=== PATIENT | female | born 1990 ===

== ENCOUNTER 2017-05-11 20:20 | Emergency (ER) | payer MEDICAID, OTHER ==
[2017-05-11 20:24] VITALS: BMI 28.2
[2017-05-11 20:38] VITALS: TEMP 97.7; O2SAT 100
[2017-05-11] MEDS ORDERED: Sodium Chloride 0.9% 1,000 ML IV STA (20:56)
--- NOTE | 2017-05-11 20:58 | ED PDOC ---
Arrival/HPI - General Chief Complaint: Palpitations Time Seen by Provider: 05/11/17 20:25 Historian: Patient - History of Present Illness Narrative History of Present Illness (Text): 05/11/17 20:58 A 26 year old female, whose past medical history includes asthma, gastritis, and cholecystectomy presents to the emergency department complaining of intermittent palpitations for the past 2 days. Patient reports she was in the emergency department in August for similar symptoms and began taking amphetamine 3 days ago for weight loss in order to lose 30 pounds. She reports loss of appetite and believed it was working, but it progressed into palpations the next day. Patient's last menstrual period was 2 weeks ago. Patient reports she' s been stressed due to school and notes having chest tightness, shortness of breath, nausea, headaches, and feels anxious, but denies smoking, taking control pills, any fever, chills, cough, abdominal pain, vomiting, diarrhea, edema, dizziness, and vision change. PMD: Dr. Flores Time/Duration: Other (2 days) Symptom Onset: Sudden Symptom Course: Unchanged, Intermittent Activities at Onset: Light Context: Home Past Medical History - Provider Review Nursing Documentation Reviewed: Yes - Infectious Disease Hx of Infectious Diseases: None - Tetanus Immunization Tetanus Immunization: Unknown - Past Medical History Past Medical History: No Previous - Cardiac Hx Cardiac Disorders: Yes Other/Comment: Palpitations - Pulmonary Hx Respiratory Disorders: Yes Hx Asthma: Yes - Neurological Hx Neurological Disorder: No - HEENT Hx HEENT Disorder: No - Renal Hx Renal Disorder: No - Endocrine/Metabolic Hx Endocrine Disorders: No - Hematological/Oncological Hx Blood Disorders: No Hx Blood Transfusions: No Hx Blood Transfusion Reaction: No - Integumentary Hx Dermatological Disorder: No - Musculoskeletal/Rheumatological Hx Musculoskeletal Disorders: No Hx Falls: No - Gastrointestinal Hx Gastrointestinal Disorders: Yes Hx Gall Bladder Disease: Yes Hx Gastritis: Yes Hx Gastroesophageal Reflux: Yes Other/Comment: gastric erosion, epigastric pain, cholelithiasis - Genitourinary/Gynecological Hx Genitourinary Disorders: No - Psychiatric Hx Emotional Abuse: No Hx Physical Abuse: No Hx Substance Use: No - Surgical History Hx Section: Yes (X1) Hx Cholecystectomy: Yes - Anesthesia Hx Anesthesia: Yes Hx Anesthesia Reactions: No Hx Malignant Hyperthermia: No - Suicidal Assessment Feels Threatened In Home Enviroment: No Family/Social History - Physician Review Nursing Documentation Reviewed: Yes Family/Social History: No Known Family HX Smoking Status: Never Smoked Hx Alcohol Use: No Hx Substance Use: No Hx Substance Use Treatment: No Allergies/Home Meds Allergies/Adverse Reactions: Allergies Iodinated Contrast- Oral and IV Dye Allergy (Verified 08/23/16 12:33) ANAPHYLAXIS shellfish derived Allergy (Verified 08/23/16 12:33) ANAPHYLAXIS Home Medications: Home Meds Medication Instructions Recorded Confirmed No Known Home Med 05/11/17 05/11/17 Review of Systems - Physician Review All systems were reviewed & negative as marked: Yes - Review of Systems Constitutional: absent: Fevers, Other (Chills) Eyes: absent: Vision Changes Respiratory: SOB. absent: Cough Cardiovascular: Chest Pain (chest tight), Palpitations Gastrointestinal: Nausea, Appetite Changes. absent: Abdominal Pain, Diarrhea, Vomiting Musculoskeletal: absent: Other (Edema) Neurological: Headache. absent: Dizziness Psychiatric: Anxiety (feels stressed due to school) Physical Exam Vital Signs Reviewed: Yes Vital Signs Temp Pulse Resp BP Pulse Ox 05/11/17 20:31 97.7 F 101 H 16 116/79 100 Temperature: Afebrile Blood Pressure: Normal Pulse: Tachycardic Respiratory Rate: Normal Appearance: Positive for: Well-Appearing, Non-Toxic, Comfortable Pain Distress: None Mental Status: Positive for: Alert and Oriented X 3 - Systems Exam Head: Present: Atraumatic, Normocephalic Pupils: Present: PERRL Conjunctiva: Present: Normal Mouth: Present: Moist Mucous Membranes Pharnyx: Present: Normal. No: ERYTHEMA, EXUDATE Neck: Present: Normal Range of Motion Respiratory/Chest: Present: Clear to Auscultation, Good Air Exchange. No: Respiratory Distress, Accessory Muscle Use Cardiovascular: Present: Normal S1, S2, Tachycardic. No: Murmurs, Irregular Rhythm Abdomen: Present: Normal Bowel Sounds. No: Tenderness, Distention, Peritoneal Signs Back: Present: Normal Inspection Upper Extremity: Present: Normal Inspection. No: Cyanosis, Edema Lower Extremity: Present: Normal Inspection. No: Edema Neurological: Present: GCS=15, CN II-XII Intact, Speech Normal Skin: Present: Warm, Dry, Normal Color. No: Rashes Psychiatric: Present: Alert, Oriented x 3, Normal Insight, Normal Concentration Medical Decision Making ED Course and Treatment: 05/11/17 20:58 Impression: 26 year old female presents complaining of palpitations for the past 2 days after taking amphetamine for weight loss. Plan: -- EKG -- Labs -- Chest Two View X-ray -- Pepcid -- IV Fluid -- Xanax -- Zofran Inj -- POC Urine Preg Test -- Reassess and disposition Prior Visits: Notes and results from previous visits were reviewed. Patient was last seen in the emergency department on 08/23/16 complaining of intermittent palpitations for 3 months. Patient was discharged. Progress Notes: EKG shows Sinus Tachycardic at 101 BPM with normal intervals, normal axis, and no ST/T changes. Interpreted by me. 05/11/17 22:38 Patient with noted history. EKG with no concerning changes. Labs with normal CE and d-dimer and otherwise unremarkable. Stress test was normal earlier this year. CXR unremarkable. Patient feeling better after meds. Doubt cardiopulmonary etiology - ok for d/c. - Lab Interpretations Lab Results: 05/11/17 20:50 05/11/17 20:50 Lab Results 05/11/17 20:50: Sodium 141, Potassium 4.4, Chloride 106, Carbon Dioxide 26, Anion Gap 14, BUN 20, Creatinine 1.0, Est GFR ( Amer) > 60, Est GFR (Non- Af Amer) > 60, Random Glucose 119 H, Calcium 9.9, Magnesium 1.8, Total Bilirubin 0.7, AST 21, ALT 30, Alkaline Phosphatase 70, Lactate Dehydrogenase 371, Total Creatine Kinase 67, Troponin I 0.01, NT-Pro-B Natriuret Pep 77.9, Total Protein 7.7, Albumin 4.3, Globulin 3.4, Albumin/Globulin Ratio 1.3, Lipase 163 05/11/17 20:50: PT 14.6 H, INR 1.33 H, APTT 33.5, D-Dimer, Quantitative < 200 05/11/17 20:50: WBC 11.6 H D, RBC 4.25, Hgb 13.3, Hct 39.5, MCV 92.9, MCH 31.3, MCHC 33.7, RDW 13.0, Plt Count 259, MPV 11.0, Gran % 62.7, Lymph % (Auto) 24.3, [place] % (Auto) 10.0 H, Eos % (Auto) 2.4, Baso % (Auto) 0.6, Gran # 7.23 H, Lymph # 2.8, [place] # 1.2 H, Eos # 0.3, Baso # 0.07 I have reviewed the lab results: Yes - RAD Interpretation Radiology Orders: 05/11/17 20:32 CHEST TWO VIEWS (PA/LAT) [RAD] Stat - EKG Interpretation Interpreted by ED Physician: Yes Type: 12 lead EKG - Medication Orders Current Medication Orders: Discontinued Medications Alprazolam (Xanax) 0.25 mg PO STAT STA PRN Reason: Protocol Stop: 05/11/17 20:57 Last Admin: 05/11/17 21:12 Dose: 0.25 mg Famotidine (Pepcid) 20 mg IVP STAT STA Stop: 05/11/17 20:57 Last Admin: 05/11/17 21:12 Dose: 20 mg IVP Administration Document 05/11/17 21:12 RD (Rec: 05/11/17 21:13 RD [id number]) Charges for Administration # of IVP Administrations 1 Sodium Chloride (Sodium Chloride 0.9%) 1,000 mls @ 999 mls/hr IV .Q1H1M STA Stop: 05/11/17 21:56 Last Admin: 05/11/17 21:13 Dose: 999 mls/hr eMAR Start Stop Document 05/11/17 21:13 RD (Rec: 05/11/17 21:13 RD [id number]) Intravenous Solution Start Date 05/11/17 Start Time 21:13 End Date 05/11/17 End time 22:13 Total Infusion Time 60 Ondansetron HCl (Zofran Inj) 4 mg IVP STAT STA Stop: 05/11/17 20:57 Last Admin: 05/11/17 21:13 Dose: 4 mg IVP Administration Document 05/11/17 21:13 RD (Rec: 05/11/17 21:13 RD [id number]) Charges for Administration # of IVP Administrations 1 - Scribe Statement The provider has reviewed the documentation as recorded by the Sanjiv Jarvis Provider Scribe Attestation: All medical record entries made by the Scribe were at my direction and personally dictated by me. I have reviewed the chart and agree that the record accurately reflects my personal performance of the history, physical exam, medical decision making, and the department course for this patient. I have also personally directed, reviewed, and agree with the discharge instructions and disposition. Disposition/Present on Arrival - Present on Arrival Any Indicators Present on Arrival: No History of DVT/PE: No History of Uncontrolled Diabetes: No Urinary Catheter: No History of Decub. Ulcer: No History Surgical Site Infection Following: None - Disposition Have Diagnosis and Disposition been Completed?: Yes Diagnosis: Palpitations Disposition: HOSPITALIZED Disposition Time: 22:30 Patient Plan: Discharge Condition: GOOD Discharge Instructions (ExitCare): Palpitations (ED), Anxiety (ED) Additional Instructions: Avoid your amphetamine, weight loss medications, and follow up with Dr. Flores. Return to the emergency department if any new concerning symptoms. Forms: [facility] ([place]), WORK NOTE
[2017-05-11 21:10] LABS: BASO # 0.07 K/mm3 (0.0-2.0); BASO % 0.6 % (0.0-3.0); EOS # 0.3 (0.0-0.7); EOS % 2.4 % (1.5-5.0); GRAN # 7.23 (1.4-6.5); GRAN % 62.7 % (50.0-68.0); HEMATOCRIT 39.5 % (36.0-48.0); LYMPH # 2.8 (1.2-3.4); LYMPH % 24.3 % (22.0-35.0); MEAN CELL VOLUME 92.9 fl (80.0-105.0); MEAN CORPUSCULAR HEMOGLOBIN 31.3 pg (25.0-35.0); MEAN CORPUSCULAR HGB CONC 33.7 g/dl (31.0-37.0); MONO # 1.2 (0.1-0.6); WHITE BLOOD COUNT 11.6 10^3/ul (4.5-11.0)
[2017-05-11 21:40] LABS: TROPONIN I 0.01 ng/mL
[2017-05-11 21:49] LABS: ALB/GLOB RATIO 1.3 (1.1-1.8); ALKALINE PHOSPHATASE 70 U/L (38-126); ALT/SGPT 30 U/L (7-56); AST/SGOT 21 U/L (14-36); BILIRUBIN,TOTAL 0.7 mg/dL (0.2-1.3); BLOOD UREA NITROGEN 20 mg/dL (7-21); CALCIUM 9.9 mg/dL (8.4-10.5); CARBON DIOXIDE 26 mmol/L (21-33); CHLORIDE 106 mmol/L (98-107); GFR AFRICAN-AMERICAN > 60; GLUCOSE,RANDOM 119 mg/dL (70-110); LIPASE 163 U/L (23-300); MAGNESIUM 1.8 mg/dL (1.7-2.2); POTASSIUM 4.4 mmol/L (3.6-5.0); SODIUM 141 mmol/L (132-148); TOTAL PROTEIN 7.7 g/dL (5.8-8.3)
[2017-05-11 21:51] LABS: D DIMER < 200 ng/mL (0-243); INR 1.33 (0.93-1.08); PARTIAL THROMBOPLASTIN TIME 33.5 Seconds (25.1-36.5)
[2017-05-11 22:30] VITALS: BP 113/72; PULSE 92; RESP 18
--- NOTE | 2017-05-12 09:53 | RAD ---
HISTORY: palpitations COMPARISON: 08/23/2016 TECHNIQUE: Chest PA and lateral FINDINGS: LUNGS: No active pulmonary disease. PLEURA: No significant pleural effusion identified. No pneumothorax apparent. CARDIOVASCULAR: Normal. OSSEOUS STRUCTURES: Save bowel direct go view to the cuboid these if in the via ligament related to the the but VISUALIZED UPPER ABDOMEN: Normal. OTHER FINDINGS: None. IMPRESSION: No active disease. Concordant results with the preliminary interpretation rendered by the emergency department physician procedure.
--- NOTE | 2017-05-13 09:33 | CARD ---
APPROVED REPORT EKG Measurement Heart [id number] CT [id number] <Conclusion> Sinus tachycardia Otherwise normal ECG
== END 2017-05-11 22:45 | disposition home or self-care (01) ==
LOC: ED 20:20
DX: R00.2 Palpitations (principal)
CPT/HCPCS: 71020; 80053; 82550; 83615; 83690; 83735; 83880; 84484; 85025; 85378; 85610; 85730; 93005; 96361; 96374; 96375; 99284; J2405; J7040

== ENCOUNTER 2018-07-30 02:10 | Emergency (ER) | payer SELFPAY ==
[2018-07-30 02:10] VITALS: BMI 28.2
[2018-07-30] MEDS ORDERED: Sodium Chloride 0.9% 1,000 ML IV STA (02:24)
--- NOTE | 2018-07-30 02:25 | ED PDOC ---
Arrival/HPI - General Chief Complaint: Abdominal Pain Time Seen by Provider: 07/30/18 02:19 Historian: Patient - History of Present Illness Narrative History of Present Illness (Text): 07/30/18 02:22 Silvia Snowden is a 27 year old female, whose past medical history includes gastritis, cholecystectomy, and asthma, who presents to the Emergency department complaining of abdominal pain. Patient states she woke up tonight with sharp epigastric pain and nausea. Patient denies any fever, chills, chest pain, shortness of breath, diarrhea, urinary symptoms, back pain, neck pain, headache, dizziness, or any other complaints. Symptom Onset: Gradual Symptom Course: Unchanged Activities at Onset: Light Context: Home Past Medical History - Provider Review Nursing Documentation Reviewed: Yes - Infectious Disease Hx of Infectious Diseases: None - Tetanus Immunization Tetanus Immunization: Unknown - Reproductive Currently : No - Past Medical History Past Medical History: No Previous - Cardiac Hx Cardiac Disorders: Yes Other/Comment: Palpitations - Pulmonary Hx Respiratory Disorders: Yes Hx Asthma: Yes - Neurological Hx Neurological Disorder: No - HEENT Hx HEENT Disorder: No - Renal Hx Renal Disorder: No - Endocrine/Metabolic Hx Endocrine Disorders: No - Hematological/Oncological Hx Blood Disorders: No Hx Blood Transfusions: No Hx Blood Transfusion Reaction: No - Integumentary Hx Dermatological Disorder: No - Musculoskeletal/Rheumatological Hx Musculoskeletal Disorders: No Hx Falls: No - Gastrointestinal Hx Gastrointestinal Disorders: Yes Hx Gall Bladder Disease: Yes Hx Gastritis: Yes Hx Gastroesophageal Reflux: Yes Other/Comment: gastric erosion, epigastric pain, cholelithiasis - Genitourinary/Gynecological Hx Genitourinary Disorders: No - Psychiatric Hx Emotional Abuse: No Hx Physical Abuse: No Hx Substance Use: No - Surgical History Hx Section: Yes (X1) Hx Cholecystectomy: Yes - Anesthesia Hx Anesthesia: Yes Hx Anesthesia Reactions: No Hx Malignant Hyperthermia: No - Suicidal Assessment Feels Threatened In Home Enviroment: No Family/Social History - Physician Review Nursing Documentation Reviewed: Yes Family/Social History: Unknown Family HX Smoking Status: Never Smoked Hx Alcohol Use: No Hx Substance Use: No Hx Substance Use Treatment: No Allergies/Home Meds Allergies/Adverse Reactions: Allergies Iodinated Contrast- Oral and IV Dye Allergy (Verified 07/30/18 02:17) ANAPHYLAXIS shellfish derived Allergy (Verified 07/30/18 02:17) ANAPHYLAXIS Review of Systems - Physician Review All systems were reviewed & negative as marked: Yes - Review of Systems Constitutional: Normal. absent: Fevers Eyes: Normal ENT: Normal Respiratory: Normal. absent: SOB, Cough Cardiovascular: Normal. absent: Chest Pain Gastrointestinal: Abdominal Pain, Nausea. absent: Vomiting Genitourinary Female: Normal. absent: Dysuria, Frequency, Hematuria, Urine Output Changes Musculoskeletal: Normal. absent: Back Pain, Neck Pain Skin: Normal. absent: Rash Neurological: Normal. absent: Headache, Dizziness Endocrine: Normal Hemo/Lymphatic: Normal Psychiatric: Normal Physical Exam Vital Signs Reviewed: Yes Temperature: Afebrile Blood Pressure: Normal Pulse: Regular Respiratory Rate: Normal Appearance: Positive for: Well-Appearing, Non-Toxic, Comfortable Pain Distress: None Mental Status: Positive for: Alert and Oriented X 3 - Systems Exam Head: Present: Atraumatic, Normocephalic Pupils: Present: PERRL Extroacular Muscles: Present: EOMI Conjunctiva: Present: Normal Mouth: Present: Moist Mucous Membranes Neck: Present: Normal Range of Motion Respiratory/Chest: Present: Clear to Auscultation, Good Air Exchange. No: Respiratory Distress, Accessory Muscle Use Cardiovascular: Present: Regular Rate and Rhythm, Normal S1, S2. No: Murmurs Abdomen: Present: Tenderness (Mild epigastric tenderness). No: Distention, Peritoneal Signs Back: Present: Normal Inspection Upper Extremity: Present: Normal Inspection. No: Cyanosis, Edema Lower Extremity: Present: Normal Inspection. No: Edema Neurological: Present: GCS=15, CN II-XII Intact, Speech Normal Skin: Present: Warm, Dry, Normal Color. No: Rashes Psychiatric: Present: Alert, Oriented x 3, Normal Insight, Normal Concentration Medical Decision Making ED Course and Treatment: 07/30/18 02:22 Impression: 27 year old female complaining of epigastric abdominal pain and nausea. Plan: -- Labs, lipase -- IV fluids -- Zofran -- Pepcid -- Toradol -- Reassess and disposition Prior Visits: Notes and results from previous visits were reviewed. Progress Notes: - Scribe Statement The provider has reviewed the documentation as recorded by the Sanjiv Barr Provider Scribe Attestation: All medical record entries made by the Scribe were at my direction and personally dictated by me. I have reviewed the chart and agree that the record accurately reflects my personal performance of the history, physical exam, medical decision making, and the department course for this patient. I have also personally directed, reviewed, and agree with the discharge instructions and disposition. Disposition/Present on Arrival - Present on Arrival Any Indicators Present on Arrival: No History of DVT/PE: No History of Uncontrolled Diabetes: No Urinary Catheter: No History of Decub. Ulcer: No History Surgical Site Infection Following: None - Disposition Have Diagnosis and Disposition been Completed?: Yes Diagnosis: Gastritis Disposition: HOME/ ROUTINE Disposition Time: 04:36 Patient Plan: Discharge Condition: GOOD Discharge Instructions (ExitCare): Gastritis (DC) Additional Instructions: take meds as prescribed/follow up [facility] this week Prescriptions: Phenobarb/Hyoscy/Atropine/Scop [ Tablet] 16.2 mg PO Q6 PRN #12 tablet PRN Reason: Dyspepsia Pantoprazole [Protonix] 40 mg PO DAILY #14 ect Referrals: [facility] [Outside] - Follow up with primary [facility] [Outside] - Follow up with primary Joy Ceron MD [Medical Doctor] - Follow up with primary Forms: [employer] ([place])
[2018-07-30 02:31] VITALS: RESP 18; O2SAT 100
[2018-07-30] MEDS ORDERED: Morphine 2 mg/ml ISec IVP STA ×2 (02:42→03:22)
[2018-07-30 02:45] LABS: HEMOGLOBIN 12.3 g/dL (12.0-16.0); MEAN CELL VOLUME 92.1 fl (80.0-105.0); MEAN CORPUSCULAR HEMOGLOBIN 30.4 pg (25.0-35.0); MEAN CORPUSCULAR HGB CONC 33.1 g/dl (31.0-37.0); RBC 4.04 10^6/uL (3.5-6.1); RED CELL DISTRIBUTION WIDTH 12.9 % (11.5-14.5); WHITE BLOOD COUNT 9.7 10^3/uL (4.5-11.0)
[2018-07-30] MEDS ORDERED: Morphine 2 mg/ml ISec ONE (02:51)
[2018-07-30 03:04] LABS: ALB/GLOB RATIO 1.2 (1.1-1.8); ALBUMIN 4.2 g/dL (3.0-4.8); ALT/SGPT 10 U/L (7-56); AST/SGOT 25 U/L (14-36); BLOOD UREA NITROGEN 14 mg/dL (7-21); CALCIUM 8.7 mg/dL (8.4-10.5); GFR NON-AFRICAN AMERICAN > 60; LIPASE 81 U/L (23-300)
[2018-07-30 05:11] VITALS: BP 108/72; PULSE 77; TEMP 98
== END 2018-07-30 04:46 | disposition home or self-care (01) ==
LOC: ED 02:10
DX: K29.70 Gastritis, unspecified, without bleeding (principal)
CPT/HCPCS: 80053; 81025; 83690; 85027; 96374; 96375; 96376; 99283; J1885; J2270; J2405; J7030

== ENCOUNTER 2018-09-14 21:17 | Emergency (ER) | payer MEDICAID ==
[2018-09-14 21:49] VITALS: BMI 32.3
[2018-09-14 21:53] VITALS: RESP 16
--- NOTE | 2018-09-14 22:48 | ED PDOC ---
Arrival/HPI <ZainabApollo - Last Filed: 09/18/18 05:56> - General Historian: Patient - History of Present Illness Narrative History of Present Illness (Text): 27 y/o female with no significant PMH presents to the ED c/o left foot pain s/p injury this afternoon. Pt tripped walking down the stairs today, rolling her left ankle, causing dorsal foot pain. Denies head strike or LOC. Pt works at [employer] and received an XR there, diagnosed with a fracture, put in an CONI wrap and give crutches for ambulation. Pt presents here for splinting and further management. Has not taken any medication for pain. Also c/o hematuria for the last 2 days. Denies open wounds, numbness, weakness, paresthesias, or any other associated symptoms. <Loren Cannon - Last Filed: 09/19/18 12:35> - General Chief Complaint: Lower Extremity Problem/Injury Time Seen by Provider: 09/14/18 21:34 Past Medical History - Provider Review Nursing Documentation Reviewed: Yes - Infectious Disease Hx of Infectious Diseases: None - Tetanus Immunization Tetanus Immunization: Unknown - Past Medical History Past Medical History: No Previous - Cardiac Hx Cardiac Disorders: Yes Other/Comment: Palpitations - Pulmonary Hx Respiratory Disorders: Yes Hx Asthma: Yes - Neurological Hx Neurological Disorder: No - HEENT Hx HEENT Disorder: No - Renal Hx Renal Disorder: No - Endocrine/Metabolic Hx Endocrine Disorders: No - Hematological/Oncological Hx Blood Disorders: No Hx Blood Transfusions: No Hx Blood Transfusion Reaction: No - Integumentary Hx Dermatological Disorder: No - Musculoskeletal/Rheumatological Hx Musculoskeletal Disorders: No Hx Falls: No - Gastrointestinal Hx Gastrointestinal Disorders: Yes Hx Gall Bladder Disease: Yes Hx Gastritis: Yes Hx Gastroesophageal Reflux: Yes Other/Comment: gastric erosion, epigastric pain, cholelithiasis - Genitourinary/Gynecological Hx Genitourinary Disorders: No - Psychiatric Hx Emotional Abuse: No Hx Physical Abuse: No Hx Substance Use: No - Surgical History Hx Section: Yes (X1) Hx Cholecystectomy: Yes - Anesthesia Hx Anesthesia: Yes Hx Anesthesia Reactions: No Hx Malignant Hyperthermia: No - Suicidal Assessment Feels Threatened In Home Enviroment: No <Loren Cannon - Last Filed: 09/19/18 12:35> Family/Social History Family/Social History: Unknown Family HX <Apollo Lamb - Last Filed: 09/18/18 05:56> - Physician Review Nursing Documentation Reviewed: Yes Family/Social History: No Known Family HX Smoking Status: Never Smoked Hx Alcohol Use: No Hx Substance Use: No Hx Substance Use Treatment: No <Loren Cannon - Last Filed: 09/19/18 12:35> Allergies/Home Meds <Apollo Lamb - Last Filed: 09/18/18 05:56> <Loren Cannon - Last Filed: 09/19/18 12:35> Allergies/Adverse Reactions: Allergies Iodinated Contrast- Oral and IV Dye Allergy (Verified 07/30/18 02:17) ANAPHYLAXIS shellfish derived Allergy (Verified 07/30/18 02:17) ANAPHYLAXIS Review of Systems - Review of Systems Constitutional: Normal. absent: Fevers Eyes: Normal. absent: Vision Changes Respiratory: Normal. absent: SOB, Cough Cardiovascular: Normal. absent: Chest Pain, Syncope Gastrointestinal: Normal. absent: Abdominal Pain, Nausea, Vomiting Genitourinary Female: Dysuria, Hematuria. absent: Urine Output Changes, Vaginal Bleeding, Vaginal Discharge Musculoskeletal: Other (left foot pain) Skin: Normal. absent: Rash, Laceration Neurological: Normal. absent: Headache, Dizziness <Loren Cannon - Last Filed: 09/19/18 12:35> Physical Exam Vital Signs Temp Pulse Resp BP Pulse Ox 09/14/18 21:49 97.7 F 87 16 112/64 99 <Apollo Lamb - Last Filed: 09/18/18 05:56> Vital Signs Reviewed: Yes Vital Signs Temp Pulse Resp BP Pulse Ox 09/14/18 21:49 97.7 F 87 16 112/64 99 Temperature: Afebrile Blood Pressure: Normal Pulse: Regular Respiratory Rate: Normal Appearance: Positive for: Well-Appearing, Non-Toxic, Comfortable Pain Distress: None Mental Status: Positive for: Alert and Oriented X 3 - Systems Exam Head: Present: Atraumatic, Normocephalic Pupils: Present: PERRL Extroacular Muscles: Present: EOMI Conjunctiva: Present: Normal Mouth: Present: Moist Mucous Membranes Neck: Present: Normal Range of Motion Respiratory/Chest: Present: Clear to Auscultation, Good Air Exchange. No: Respiratory Distress, Accessory Muscle Use Cardiovascular: Present: Regular Rate and Rhythm, Normal S1, S2, Peripheal Pulses Present Back: Present: Normal Inspection. No: CVA Tenderness Upper Extremity: Present: Normal Inspection, Normal ROM, NORMAL PULSES, Neurovascularly Intact, Capillary Refill < 2s. No: Cyanosis, Edema, Temperature Abnormalties Lower Extremity: Present: Normal Inspection, NORMAL PULSES, Normal ROM, Tenderness (dorsal proximal left foot), Swelling (dorsal proximal left foot), Neurovascularly Intact, Capillary Refill < 2 s. No: Deformity, Temperature Abnormalties Neurological: Present: GCS=15, CN II-XII Intact, Speech Normal, Motor Func Grossly Intact, Normal Sensory Function Skin: Present: Warm, Dry, Normal Color. No: Rashes Psychiatric: Present: Alert, Oriented x 3, Normal Insight, Normal Concentration, Normal Affect, Normal Mood <Loren Cannon - Last Filed: 09/19/18 12:35> Medical Decision Making - Lab Interpretations Lab Results: Urine Color Light red (YELLOW) 09/14/18 22:47 Urine Appearance Slight-cloudy (CLEAR) 09/14/18 22:47 Urine pH 5.5 (4.7-8.0) 09/14/18 22:47 Ur Specific [place] >= 1.030 (1.005-1.035) 09/14/18 22:47 Urine Protein Negative mg/dL (<30 mg/dL) 09/14/18 22:47 Urine Glucose (UA) Negative mg/dL (NEGATIVE) 09/14/18 22:47 Urine Ketones 15 mg/dL (NEGATIVE) H 09/14/18 22:47 Urine Blood Trace-intact (NEGATIVE) H 09/14/18 22:47 Urine Nitrate Positive (NEGATIVE) H 09/14/18 22:47 Urine Bilirubin Negative (NEGATIVE) 09/14/18 22:47 Urine Urobilinogen 0.2 E.U./dL (<1 E.U./dL) 09/14/18 22:47 Ur Leukocyte Esterase Trace Jarrod/uL (NEGATIVE) H 09/14/18 22:47 Urine RBC 1 - 3 /hpf (0-2) H 09/14/18 22:47 Urine WBC 2 - 5 /hpf (0-6) 09/14/18 22:47 Ur Epithelial Cells 3 - 4 /hpf (0-5) 09/14/18 22:47 Urine Bacteria Small /hpf (NONE) 09/14/18 22:47 - RAD Interpretation Radiology Orders: 09/14/18 21:51 ANKLE LEFT 3 VIEWS ROUTINE [RAD] Stat FOOT LEFT 3 VIEWS ROUTINE [RAD] Stat - Medication Orders Current Medication Orders: Discontinued Medications Acetaminophen (Tylenol 325mg Tab) 650 mg PO STAT STA Stop: 09/14/18 22:49 Last Admin: 09/14/18 22:53 Dose: 650 mg MAR Pain/Vitals Document 09/14/18 22:53 (Rec: 09/14/18 22:53 [id number] Pain Reassessment Is This A Pain ReAssessment? No Presence of Pain Presence of Pain Yes Pain Scale Used Protocol: PSCALES Pain Scale Used Numeric Location Left, Right or Bilateral Left Pain Location Body Site Ankle Intensity 9 Ketorolac Tromethamine (Toradol) 60 mg IM STAT STA Stop: 09/14/18 21:52 <Apollo Lamb - Last Filed: 09/18/18 05:56> ED Course and Treatment: Initial Plan: * Left foot XR * Left ankle XR * UA * POC UA significant for UTI, will treat with keflex Xrays significant for dorsal navicular avulsion fracture Spoke with podiatry resident, who recommends posterior short leg splint with crutches for ambulation. Pt to followup with podiatry clinic on Monday. Pt placed in left posterior short leg splint by me. Neurovascular exam remains unchanged after splint. Pt tolerated well without complication. Diagnostic testing results and plan of care discussed with patient. Strict instructions given regarding prescription use, importance of followup, and signs/symptoms to return to ER including worsening pain, numbness, paresthesias, or any other new/worsening symptoms. Pt verbalized understanding of discussion. Patient is A&Ox3, ambulating with steady gait, with vital signs stable for discharge. - Lab Interpretations I have reviewed the lab results: Yes - RAD Interpretation Radiology Orders: 09/14/18 21:51 ANKLE LEFT 3 VIEWS ROUTINE [RAD] Stat FOOT LEFT 3 VIEWS ROUTINE [RAD] Stat - Medication Orders Current Medication Orders: Discontinued Medications Ketorolac Tromethamine (Toradol) 60 mg IM STAT STA Stop: 09/14/18 21:52 <Loren Cannon - Last Filed: 09/19/18 12:35> - PA / MEDICAL ADMINISTRATIVE / Resident Statement / has reviewed & agrees with the documentation as recorded. <Apollo Lamb - Last Filed: 09/18/18 05:56> Disposition/Present on Arrival <ZainabApollo - Last Filed: 09/18/18 05:56> - Present on Arrival Any Indicators Present on Arrival: No History of DVT/PE: No History of Uncontrolled Diabetes: No Urinary Catheter: No History of Decub. Ulcer: No History Surgical Site Infection Following: None - Disposition Have Diagnosis and Disposition been Completed?: Yes Disposition Time: 01:15 Patient Plan: Discharge <Loren Cannon - Last Filed: 09/19/18 12:35> - Disposition Diagnosis: Navicular fracture, foot, UTI (urinary tract infection) Disposition: HOME/ ROUTINE Condition: GOOD Discharge Instructions (ExitCare): Urinary Tract Infections in Adults, Foot Fracture (DC) Additional Instructions: Keflex every 12 hours for 1 week for urinary infection Ibuprofen every 8 hours as needed for pain Keep splint on until followup with podiatry Use crutches to move around Followup with podiatry within 2 days Return to ER for any new/worsening symptoms Prescriptions: Cephalexin [Keflex] 500 mg PO Q12 7 Days #14 capsule Ibuprofen [Motrin Tab] 600 mg PO Q8 #30 tab Referrals: Podiatry Clinic [Outside] - Follow up with primary Alexandre Castellanos MD [[facility]] - Follow up with primary Forms: [employer] [facility] (Slovenian), WORK NOTE
[2018-09-14 23:09] LABS: PH,URINE 5.5 (4.7-8.0); URINE BILIRUBIN NEGATIVE (NEGATIVE); URINE BLOOD TRACE-INTACT (NEGATIVE); URINE COLOR LIGHT RED (YELLOW); URINE GLUCOSE (UA) NEGATIVE (NEGATIVE); URINE LEUKOCYTE ESTERASE TRACE Leu/uL (NEGATIVE); URINE PROTEIN NEGATIVE mg/dL (<30 mg/dL); URINE UROBILINOGEN 0.2 E.U./dL (<1 E.U./dL)
[2018-09-14 23:10] LABS: URINE APPEARANCE SLIGHT-CLOUDY (CLEAR)
[2018-09-14 23:20] LABS: URINE BACTERIA SMALL /hpf
[2018-09-15 01:28] VITALS: BP 112/73; PULSE 79; TEMP 97.9; O2SAT 100
--- NOTE | 2018-09-15 08:34 | RAD ---
Date of service: 09/14/2018 PROCEDURE: Left Ankle Radiographs. HISTORY: possible navicular fx COMPARISON: None available. TECHNIQUE: 3 views obtained. FINDINGS: BONES: There is a displaced fracture fragment dorsal to the navicular. JOINTS: Normal. No osteoarthritis. Ankle mortise maintained. Talar dome intact SOFT TISSUES: Normal. OTHER FINDINGS: None. IMPRESSION: There is a displaced fracture fragment dorsal to the navicular.
--- NOTE | 2018-09-15 08:41 | RAD ---
Date of service: 09/14/2018 PROCEDURE: Left Foot Radiographs. HISTORY: possible navicular fx COMPARISON: None. TECHNIQUE: 3 views obtained. FINDINGS: BONES: There is a small bone fragment dorsal to the navicular consistent with a chip or avulsion fracture. JOINTS: Normal. SOFT TISSUES: Normal. OTHER FINDINGS: None. IMPRESSION: There is a small bone fragment dorsal to the navicular consistent with a chip or avulsion fracture.
== END 2018-09-15 01:28 | disposition home or self-care (01) ==
LOC: ED 21:17
DX: S92.252D Displaced fracture of navicular [scaphoid] of left foot, subsequent encounter for fracture with routine healing (principal); W19.XXXD Unspecified fall, subsequent encounter; N39.0 Urinary tract infection, site not specified